=== PATIENT | female | born 1995 | race Caucasian/White ===

== ENCOUNTER 2017-12-20 17:58 | Inpatient (IN) | payer OTHER ==
[~2017-12-20] VITALS: Ht 167.6 cm; Wt 89.8 kg
[2017-12-20 18:02] VITALS: BP_SYST 153
--- NOTE | 2017-12-20 18:05 | NUR ---
Aden lira in ED - 12/20/17 at 1806 by [email or web address] Placed in room 03 . Placed on quality assurance monitor chassis, blood pressure machine and pulse oximeter. To gown for exam. Side rails up.
--- NOTE | 2017-12-20 18:05 | NUR ---
Patient to ER bed 04 to gown for evaluation. Side rails up.
[2017-12-20] MEDS ORDERED: NACL 0.9% 1,000 ML IV ONE (18:30)
[2017-12-20] MEDS ORDERED: METOCLOPRAMIDE HCL 10 MG/2 ML VIAL IVP ONE (18:30)
[2017-12-20] MEDS ORDERED: MORPHINE 4 MG/ML INJ. SYRINGE IVP ONE (18:30)
--- NOTE | 2017-12-20 18:30 | NUR ---
PT PRESENTS TO ED WITH NAUSEA, VOMITING, CP THAT "FEELS LIIKE HEARTBURN", ABD PAIN, NO FEVERS AT HOME. PT IS A&oX4. NAD
[2017-12-20 19:15] LABS: BASOPHILS # (AUTO) 0.1 K/uL (0.0-0.2); BASOPHILS % (AUTO) 0.6 % (0.0-2.0); EOSINOPHILS % (AUTO) 0.4 % (0.0-4.0); HEMATOCRIT 49.5 % (36-48); HEMOGLOBIN 16.9 g/dL (12.0-16.0); LYMPHOCYTES # (AUTO) 1.7 K/uL (1.0-5.5); LYMPHOCYTES % (AUTO) 17.7 % (20.5-51.5); MEAN CORPUSCULAR HEMOGLOBIN 29 pg (27-31); MEAN CORPUSCULAR HGB CONC 34 % (32-36); MEAN CORPUSCULAR VOLUME 86 fL (79.0-98.0); MONOCYTES # (AUTO) 1.2 K/uL (0.0-1.0); NEUTROPHILS # (AUTO) 6.5 K/uL (1.8-7.7); NEUTROPHILS % (AUTO) 68.3 % (40.0-70.0); PLATELET COUNT (AUTO) 307 K/uL (130-430); RED BLOOD CELL COUNT(AUTO) 5.76 MIL/uL (4.2-6.2); RED CELL DISTRIBUTION WIDTH 12.1 % (9.0-15.0); WHITE BLOOD COUNT (AUTO) 9.5 K/uL (4.8-10.8)
--- NOTE | 2017-12-20 19:25 | NUR ---
REPORT GIVEN TO CASS LARA. PT IN BED. U/S TECH AT BS, PERFORMING ABD U/S
[2017-12-20 19:27] LABS: ACETONE, SERUM SMALL (NEGATIVE)
[2017-12-20 19:32] LABS: ANION GAP 22 (5-15); CALCIUM 9.8 mg/dL (8.4-11.0); CHLORIDE 104 mmol/L (98-107); CREATININE 0.86 mg/dL (0.55-1.30); GLUCOSE 105 mg/dL (70-99); POTASSIUM 3.2 mmol/L (3.5-5.1); SODIUM SERUM 140 mmol/L (136-145); UREA NITROGEN, BLOOD 6 mg/dL (8-21)
[2017-12-20 19:34] LABS: ALANINE AMINOTRANSFERASE 35 U/L (12-78); ALBUMIN 4.7 g/dL (3.4-4.8); ASPARTATE AMINOTRANSFERASE 19 U/L (10-37); LIPASE 189 U/L (73-393); TOTAL BILIRUBIN 0.5 mg/dL (0.0-1.0)
--- NOTE | 2017-12-20 19:48 | NUR ---
ER Dr. Washburn at bedside examining patient.
[2017-12-20] MEDS ORDERED: ONDANSETRON HCL 4 MG/2 ML VIAL IVP ONE (20:15)
[2017-12-20] MEDS ORDERED: KCL 20 mEq in 100 mL (PREMIX) 100 ML IV ONE (20:15)
[2017-12-20] MEDS ORDERED: PANTOPRAZOLE SODIUM 40 MG/VIAL (PROTONIX) IVP ONE (20:15)
--- NOTE | 2017-12-20 20:24 | NUR ---
Patient is calmly resting in ER bed, vital signs are stable at this time.
--- NOTE | 2017-12-20 20:59 | NUR ---
Patient denies nausea at this time and states her abdominal pain is mild and tolerable. Patient denies any other complaints at this time.
[2017-12-20] MEDS ORDERED: TOP25 PO (21:24)
--- NOTE | 2017-12-20 21:51 | NUR ---
ADMISSION NOTE Received patient from ER via gurmarlena, received report from RN. Patient admitted with diagnosis of Abd pain. Patient oriented to hospital routine, call light, toileting and safety-patient verbalized understanding.
[2017-12-20 21:55] VITALS: BP_SYST 131
--- NOTE | 2017-12-20 21:57 | NUR ---
Patient will be admitted to care of Dr. Velazquez. Admitted to med surg unit. Will go to room 135. Belongings list completed. Summary report printed. Report given to Adina LARA at bedside.
[2017-12-20] MEDS: ONDANSETRON HCL 4 MG/2 ML VIAL IVP PRN (22:30)
--- NOTE | 2017-12-20 22:30 | NUR ---
ROUNDS / NAUSEA Patient continues to experience nausea. She is producing moderate amounts of clear bile, there is no retching vomiting present. Zofran IVP was administered as ordered. Patient tolerated procedure. Will continue to monitor.
[2017-12-20] MEDS: NACL 0.9% 1,000 ML IV SCH (22:34)
--- NOTE | 2017-12-20 23:06 | NUR ---
PAGED IPAGED [phone] @ 2306 I SPOKE WITH BRI SOTUT SENIOR TREASURY CONSULTANT. HE CALLED BACK @ [phone]
--- NOTE | 2017-12-20 23:30 | NUR ---
paged Patient does not have pain medication ordered. Paged Dr. Velazquez and he stated he will come see the patient.
[2017-12-21 00:30] LABS: HCG,QUAL RESULT NEGATIVE (NEGATIVE)
--- NOTE | 2017-12-21 01:20 | NUR ---
ROUNDS Patient is awake, resting in bed, in fowlers position. She reports abdominal pain which also travels and feels like a burning sensation to chest. 2mg Morphine IVP was administered as ordered. Patient was educated on side effects and fall precautions related to medication. Bed is in low position and call light w/in reach.
[2017-12-21] MEDS: MORPHINE 2 MG/ML INJ. SYRINGE IVP PRN ×3 (01:24→22:33)
[2017-12-21] MEDS: NACL 0.9% 1,000 ML IV SCH ×3 (04:21→17:23)
[2017-12-21 04:39] VITALS: BP_SYST 129
--- NOTE | 2017-12-21 04:41 | NUR ---
ROUNDS Patient is resting, lying down, w/lights out. She reports discomfort and pain are still present, though not as severe. She reports abdominal pain is 5/10. Vital signs were taken and IV fluids replaced. Plan of care was reviewed. Bed is in low position and call light within reach.
--- NOTE | 2017-12-21 06:56 | NUR ---
CLOSING NOTE Patient is resting, needs met at this time. IV fluids remain infusing. Significant other is at bedside. Call light w/in reach. Will continue to monitor until endorse care to morning nurse.
--- NOTE | 2017-12-21 07:30 | NUR ---
OPENING NOTE PT AWAKE ALERT. NO DISTRESS NOTED. ORIENTED TO CALL LIGHT USE. REFUSING BED ALARM A THIS TIME.
[2017-12-21 08:00] VITALS: BP_SYST 127
[2017-12-21] MEDS ORDERED: DIATR MEGLU/DIATRIZ SOD 30 ML SOLUTION PO ONE (08:59)
[2017-12-21] MEDS: PANTOPRAZOLE SODIUM 40 MG/VIAL (PROTONIX) IVP SCH (09:33)
[2017-12-21] MEDS: ONDANSETRON HCL 4 MG/2 ML VIAL IVP PRN (09:34)
--- NOTE | 2017-12-21 09:40 | NUR ---
MED PASS PT GIVEN ZOFRAN FOR NAUSEA. IVP PROTONIX ALSO GIVEN
--- NOTE | 2017-12-21 10:25 | NUR ---
CONSULTATION PAGED/CALLED Reason for Consultation: [] COUGH Person Who was Notified: [] YANETH Consulting Physician: [] DR Evelin GONZALEZ Deer Farmer Specialty: [] PULMONOLOGY Ordering Physician: [] DR Priti TANNER
[2017-12-21] MEDS: ALBUTEROL SULFATE 0.083% 2.5 MG/3 ML VIAL.NEB INH SCH ×4 (10:40→23:46)
[2017-12-21] MEDS: IPRATROPIUM BROM 0.5 MG/2.5 ML VIAL.NEB (ATROVENT) INH SCH ×4 (10:40→23:46)
[2017-12-21 11:14] LABS: CREATININE 0.64 mg/dL (0.55-1.30); POTASSIUM 3.8 mmol/L (3.5-5.1)
[2017-12-21 11:19] LABS: ALBUMIN 3.8 g/dL (3.4-4.8); TOTAL BILIRUBIN 0.7 mg/dL (0.0-1.0)
[2017-12-21 11:20] LABS: HEMATOCRIT 44.5 % (36-48); HEMOGLOBIN 14.4 g/dL (12.0-16.0); MEAN CORPUSCULAR HEMOGLOBIN 28 pg (27-31); MEAN CORPUSCULAR HGB CONC 32 % (32-36); MEAN CORPUSCULAR VOLUME 86 fL (79.0-98.0); PLATELET COUNT (AUTO) 282 K/uL (130-430); RED BLOOD CELL COUNT(AUTO) 5.17 MIL/uL (4.2-6.2); RED CELL DISTRIBUTION WIDTH 12.3 % (9.0-15.0); WHITE BLOOD COUNT (AUTO) 5.6 K/uL (4.8-10.8)
[2017-12-21] MEDS: methylPREDNISolone SOD SUCC/PF 62.5 MG/ML VIAL IVP SCH ×2 (11:32→18:20)
[2017-12-21 11:59] LABS: BAND % (MANUAL) 5 % (0-6); BASOPHILS % (MANUAL) 0 % (0-2); EOSINOPHILS % (MANUAL) 1 % (0-7); LYMPHOCYTES % (MANUAL) 38 % (20-46); MONOCYTES % (MANUAL) 11 % (0-11)
[2017-12-21 12:48] VITALS: BP_SYST 130
--- NOTE | 2017-12-21 12:57 | NUR ---
MED PASS PT C/O ABD PAIN 09/19 GIVEN MORPHINE 2 MG IVP ORDERED. SAFETY MAINTAINED. WILL MONITOR.
[2017-12-21] MEDS: ALBUTEROL SULFATE 0.083% 2.5 MG/3 ML VIAL.NEB INH PRN (13:12)
[2017-12-21] MEDS: IPRATROPIUM BROM 0.5 MG/2.5 ML VIAL.NEB (ATROVENT) INH PRN (13:12)
--- NOTE | 2017-12-21 14:00 | NUR ---
PATIENT RESTING: Patient resting quietly. No acute distress noted. Vital signs within normal range.
--- NOTE | 2017-12-21 15:30 | NUR ---
RT NOTES Tx not indicated at this time. No SOB noted. Last HHN tx given @1310.
--- NOTE | 2017-12-21 16:00 | NUR ---
ROUNDS PT LAYING IN BED WITH GIRLFRIEND AT BEDSIDE. NO DISTRESS NOTED.
[2017-12-21 16:34] VITALS: BP_SYST 132
[2017-12-21] MEDS: AZITHROMYCIN 500 MG in NS 250 ML IV SCH (17:24)
--- NOTE | 2017-12-21 18:23 | NUR ---
med pass ivp solumedrol given. no distress noted.
--- NOTE | 2017-12-21 19:25 | NUR ---
CLOSING NOTE ALL NEEDS MET THROUGH SHIFT. CARE ENDORSED TO MAKE UP WORKER. SAFETY MAINTAINED.
--- NOTE | 2017-12-21 19:34 | NUR ---
OPENING NOTE Received report from Magda. Patient resting in bed awake, alert, oriented x4. Breathing unlabored and even on room air. No signs of distress, no needs at this time. Fall and safety precautions in place. Bed in lowest position, brake on, call light within reach. Bed alarm refused. IVF infusing a ordered. Will continue to monitor.
[2017-12-21 20:15] VITALS: BP_SYST 148
--- NOTE | 2017-12-21 22:35 | NUR ---
Pt c/o pain. Administered PRN morphine IVP as ordered. Educated patient on safety and side effects. Encouraged call for assist.
[2017-12-22] VITALS: BP_SYST 121
--- NOTE | 2017-12-22 00:14 | NUR ---
Patient resting in bed awake, alert, oriented x4. Breathing unlabored and even on room air. No signs of distress, no needs at this time. Fall and safety precautions in place. Bed in lowest position, brake on, call light within reach. Girlfriend at the bedside. IVF infusing a ordered. Will continue to monitor.
--- NOTE | 2017-12-22 02:15 | NUR ---
Patient reports one episode of diarrhea
[2017-12-22] MEDS: methylPREDNISolone SOD SUCC/PF 62.5 MG/ML VIAL IVP SCH ×3 (02:57→18:27)
[2017-12-22] MEDS: NACL 0.9% 1,000 ML IV SCH ×4 (02:58→20:41)
[2017-12-22] MEDS: IPRATROPIUM BROM 0.5 MG/2.5 ML VIAL.NEB (ATROVENT) INH SCH ×6 (03:00→23:00)
[2017-12-22] MEDS: ALBUTEROL SULFATE 0.083% 2.5 MG/3 ML VIAL.NEB INH SCH ×6 (03:00→23:00)
--- NOTE | 2017-12-22 03:02 | NUR ---
Med pass. New IVF hung
[2017-12-22 06:14] LABS: MONOCYTES # (AUTO) 0.5 K/uL (0.0-1.0)
[2017-12-22 06:28] LABS: CALCIUM 9.6 mg/dL (8.4-11.0); CREATININE 0.55 mg/dL (0.55-1.30); TOTAL BILIRUBIN 0.5 mg/dL (0.0-1.0)
[2017-12-22 07:14] LABS: BASOPHILS % (AUTO) 0.7 % (0.0-2.0); HEMOGLOBIN 15.2 g/dL (12.0-16.0); LYMPHOCYTES % (AUTO) 19.2 % (20.5-51.5); MEAN CORPUSCULAR HEMOGLOBIN 28 pg (27-31); MEAN CORPUSCULAR HGB CONC 33 % (32-36); MEAN CORPUSCULAR VOLUME 86 fL (79.0-98.0); NEUTROPHILS # (AUTO) 3.8 K/uL (1.8-7.7); NEUTROPHILS % (AUTO) 71.1 % (40.0-70.0); RED BLOOD CELL COUNT(AUTO) 5.34 MIL/uL (4.2-6.2); RED CELL DISTRIBUTION WIDTH 12.5 % (9.0-15.0); WHITE BLOOD COUNT (AUTO) 5.3 K/uL (4.8-10.8)
[2017-12-22 07:24] LABS: PLATELET COUNT (AUTO) 302 K/uL (130-430)
--- NOTE | 2017-12-22 07:36 | NUR ---
CLOSING NOTE Gave report Marielos. Patient resting in bed awake, alert, oriented x4. Breathing unlabored and even on room air. No signs of distress, no needs at this time. Fall and safety precautions in place. Bed in lowest position, brake on, call light within reach. Girlfriend at the bedside. IVF infusing a ordered. Endorsed care to day shift nurse.
[2017-12-22 08:00] VITALS: BP_SYST 139
--- NOTE | 2017-12-22 08:00 | NUR ---
Opening Note/Refuse bed alarm received report from assistant casino shift manager RN, pt resting in bed, A&Ox4, respirations even and unlabored on room air, pt reports pain is controlled at this time, no acute distress noted, IV site clean, dry, intact, and infusing well, pt educated on use of call light and asked to call for assistance, pt verbalized understanding, call light in reach, pt educated on use of bed alarm for pt safety, pt refusing bed alarm at this time, bed in low position, fall and aspiration precautions in place.
[2017-12-22] MEDS: PANTOPRAZOLE SODIUM 40 MG/VIAL (PROTONIX) IVP SCH (08:29)
--- NOTE | 2017-12-22 08:35 | NUR ---
Medication pt educated on medication use and side effects, pt verbalized understanding, tolerated medication administration well, no acute distress noted, fall and aspiration precautions in place.
--- NOTE | 2017-12-22 10:00 | NUR ---
MD Rounds Rounds with Dr. Schultz, informed MD that pt has had multiple episodes of liquid diarrhea this AM, orders for imodium, per MD stool sample is not needed, orders for fingersticks ACHS, orders verified with read back.
[2017-12-22] MEDS ORDERED: LOPERAMIDE HCL 2 MG CAPSULE PO PRN (10:15)
[2017-12-22] MEDS ORDERED: TOPIRAMATE 25 MG TABLET(TOPAMAX) PO ONE (10:45)
--- NOTE | 2017-12-22 10:46 | NUR ---
Medication pt educated on use and side effects of medication, pt verbalized understanding, pt tolerated medication administration well, no acute distress noted, fall and aspiration precautions in place.
--- NOTE | 2017-12-22 11:03 | NUR ---
Ambulating in lr pt seen ambulating in lr, steady gait noted, pt tolerating well.
--- NOTE | 2017-12-22 11:28 | NUR ---
Medication pt educated on medication use and side effects, pt verbalized understanding, tolerated medication administration well, no acute distress noted, fall and aspiration precautions in place.
--- NOTE | 2017-12-22 12:00 | NUR ---
MD Rounds Rounds with Dr. Marion MD made aware of pt potassium 3.0, and that pt has DM, orders for fingersticks ACHS and PO potassium replacement, orders verified with read back.
[2017-12-22] MEDS ORDERED: POTASSIUM CHLORIDE 20 MEQ TAB.PRT.SR PO ONE (12:15)
[2017-12-22 12:19] VITALS: BP_SYST 130
--- NOTE | 2017-12-22 12:32 | NUR ---
Medication pt educated on medication use and side effects, pt verbalized understanding, tolerated medication administration well, no acute distress noted, fall and aspiration precautions in place.
--- NOTE | 2017-12-22 13:38 | NUR ---
Rounds Dr. Almeida at bedside examining pt. Addendum: 12/22/17 at 1339 by Marielos Kraus RN add: per pt she vomited after taking the PO potassium replacement, MD to order IV potassium.
[2017-12-22] MEDS ORDERED: POTASSIUM CHLORIDE 40 MEQ, LIDOCAINE JECT 2% PF 100 MG 50 MG in NS 250 ML IV ONE (13:45)
--- NOTE | 2017-12-22 14:27 | NUR ---
Called Pharmacy called pharmacy regarding potassium replacement, per pharmacy they will bring to floor as soon as available.
[2017-12-22] MEDS: AZITHROMYCIN 500 MG in NS 250 ML IV SCH (14:33)
--- NOTE | 2017-12-22 14:42 | NUR ---
Medication pt educated on medication use and side effects, pt verbalized understanding, tolerating medication administration well, no redness or swelling noted at IV site, no acute distress noted, fall and aspiration precautions in place.
--- NOTE | 2017-12-22 15:45 | NUR ---
Pt ambulating/SOB pt ambulating in lr, pt complaint of SOB, pt taken back to bed via wheelchair, respiratory therapy at bedside giving breathing treatment, pt tolerating well, BP 137/63, HR 101, O2Sat 100%, respirations 19, pt states that SOB is relieved with breathing treatment and rest, no acute distress noted, fall and aspiration precautions in place.
[2017-12-22] MEDS: MORPHINE 2 MG/ML INJ. SYRINGE IVP PRN (16:16)
--- NOTE | 2017-12-22 16:23 | NUR ---
Pain Management/Medication pt complaint of pain 09/19 to abdomen, pt educated on use and side effects of PRN pain medication, pt verbalized understanding, tolerated medication administration well, no acute distress noted, fall and aspiration precautions in place.
[2017-12-22 16:55] VITALS: BP_SYST 148
--- NOTE | 2017-12-22 17:30 | NUR ---
Blood Glucose blood glucose 146, no insulin indicated per sliding scale orders, pt resting in bed, family at bedside, fall and aspiration precautions in place.
--- NOTE | 2017-12-22 18:32 | NUR ---
Medication pt educated on medication use and side effects, pt verbalized understanding, tolerated medication administration well, no acute distress noted, fall and aspiration precautions in place.
[2017-12-22 19:10] VITALS: BP_SYST 118
--- NOTE | 2017-12-22 19:10 | NUR ---
Closing Note/Refuse bed alarm pt resting in bed, A&Ox4, respirations even and unlabored on room air, pt reports pain is controlled at this time, no acute distress noted, pt requesting breathing treatment, respiratory therapy called, IV site clean, dry, intact, and infusing well, family at bedside, pt educated on use of call light and asked to call for assistance, pt verbalized understanding, call light in reach, pt educated on use of bed alarm for pt safety, pt refusing bed alarm, bed in low position, fall and aspiration precautions in place, care endorsed to Wanda LARA.
--- NOTE | 2017-12-22 19:13 | NUR ---
Opening Note Received bedside sbar report from william RNMraielos. Patient is awake/alert/oriented, with her mother and father bedside. No acute distress noted at this time: 118/60 79 16 98.0 98% (room air) IV site noted to LAC 22G, infusing NS @ 150 ml/hr. Patency verified with good blood return/flush. No signs of infiltration at this time. Introduced myself, discussed plan of care, updated whiteboard. Bed to lowest position, 3 side rails raised, call light within reach, bed alarm not activated per request. Will continue to monitor patient.
--- NOTE | 2017-12-22 19:39 | NUR ---
health type technician currently in with patient administering breathing treatment.
--- NOTE | 2017-12-22 20:01 | NUR ---
Patient's mother/father requested to speak with me. Came to room and they have questions/concerns about what is going on with their daughter (who is present with us). They are concerned with how non-attentive and nonchalant Dr. Schultz is with her as a patient. They continue to show concern about how she can only walk a few steps before becoming short of breath. The mother mentions that a week or so ago patient was bitten several times for mosquitos and they are questioning if this could be '[place] virus or malaria.' They would like more labs done. Informed them upon rounding tomorrow to ensure they express these concerns/request to and that I'd endorse concerns to william LARA. They provided their # in the even they are not present [phone]
--- NOTE | 2017-12-22 20:47 | NUR ---
Blood Glucose : 184 (2U regular insulin administered per physician ordered sliding scale.) Patient educated and verbalized understanding for s/s hypoglycemia.
[2017-12-22] MEDS: INSULIN REGULAR, HUMAN 100 UNITS/ML, 10 ML VIAL (novoLIN R) SUBCUT PRN (20:50)
--- NOTE | 2017-12-22 21:05 | NUR ---
Patient would like warm blanket; provided.
--- NOTE | 2017-12-22 23:06 | NUR ---
Rounds Patient is awake/alert/oriented with her fiance bedside. Respirations equal/non-labored @ 17/min IV site clean/dry/intact with no signs of infiltration at this time. Bed to lowest position, 3 side rails raised, call light within reach, bed alarm not activated per request. Will continue to monitor patient.
--- NOTE | 2017-12-23 00:45 | NUR ---
IV site infiltrated. New IV site started to RFA 22G, patency verified with good blood return/flush. Old site DC'd and verified catheter retrieved was fully intact.
[2017-12-23 01:20] VITALS: BP_SYST 107
[2017-12-23] MEDS: MORPHINE 2 MG/ML INJ. SYRINGE IVP PRN (02:06)
--- NOTE | 2017-12-23 02:12 | NUR ---
Rounds Patient is resting, eyes closed with no acute distress noted. No shortness of breath, no labored breathing. IV site clean/dry/intact with no signs of infiltration at this time. Bed to lowest position, 3 side rails raised, call light within reach, bed alarm not activated per request. Will continue to monitor patient.
[2017-12-23] MEDS: IPRATROPIUM BROM 0.5 MG/2.5 ML VIAL.NEB (ATROVENT) INH SCH ×4 (03:00→19:15)
[2017-12-23] MEDS: ALBUTEROL SULFATE 0.083% 2.5 MG/3 ML VIAL.NEB INH SCH ×2 (03:00→06:18)
[2017-12-23] MEDS: methylPREDNISolone SOD SUCC/PF 62.5 MG/ML VIAL IVP SCH ×2 (03:16→20:25)
[2017-12-23] MEDS: NACL 0.9% 1,000 ML IV SCH (03:22)
--- NOTE | 2017-12-23 04:06 | NUR ---
Rounds Patient is resting, eyes closed but easily arouses to light stimulation. Her fiance is sleeping bedside. Equal rise and fall of non-labored respirations; 17/min IV site clean/dry/intact with no signs of infiltration at this time. Bed to lowest position, 3 side rails raised, call light within reach, bed alarm not activated per request. Will continue to monitor patient.
--- NOTE | 2017-12-23 06:10 | NUR ---
Patient called and asked to see me. Came to see patient she complains of nausea, light headedness and is trembling. I asked her what happened and she says that lab was just there to draw blood, she got up to use the restroom and felt like she was going to faint. (Patient is afraid of needles.) Checked blood glucose: 130 Vitals: 120/76 71 19 100% 97.9 with no complaints of pain. Administered Zofran 4mg for nausea. Patient is a bit short of breath, called respiratory and they will come administer breathing treatment per request. Will continue to monitor patient.
[2017-12-23] MEDS: ONDANSETRON HCL 4 MG/2 ML VIAL IVP PRN (06:13)
--- NOTE | 2017-12-23 06:13 | NUR ---
Blood Glucose : 130 (no correction needed per physician ordered sliding scale.) Patient educated and verbalized understanding for s/s hypoglycemia.
--- NOTE | 2017-12-23 06:18 | NUR ---
cat scan technologist currently in with patient administering breathing treatment.
[2017-12-23 07:06] LABS: BASOPHILS # (AUTO) 0.1 K/uL (0.0-0.2); BASOPHILS % (AUTO) 0.9 % (0.0-2.0); EOSINOPHILS % (AUTO) 0.1 % (0.0-4.0); HEMATOCRIT 38.7 % (36-48); HEMOGLOBIN 12.7 g/dL (12.0-16.0); MEAN CORPUSCULAR HEMOGLOBIN 28 pg (27-31); MEAN CORPUSCULAR HGB CONC 33 % (32-36); MEAN CORPUSCULAR VOLUME 85 fL (79.0-98.0); MONOCYTES # (AUTO) 0.6 K/uL (0.0-1.0); NEUTROPHILS # (AUTO) 4.8 K/uL (1.8-7.7); PLATELET COUNT (AUTO) 282 K/uL (130-430); RED BLOOD CELL COUNT(AUTO) 4.53 MIL/uL (4.2-6.2); RED CELL DISTRIBUTION WIDTH 12.6 % (9.0-15.0); WHITE BLOOD COUNT (AUTO) 6.4 K/uL (4.8-10.8)
[2017-12-23 07:14] LABS: ALBUMIN 3.4 g/dL (3.4-4.8); CREATININE 0.57 mg/dL (0.55-1.30); POTASSIUM 3.5 mmol/L (3.5-5.1); TOTAL BILIRUBIN 0.7 mg/dL (0.0-1.0)
--- NOTE | 2017-12-23 07:15 | NUR ---
Closing Note Bedside SBAR report given to dayshift RNAntonino Patient is awake/alert/oriented and says she is 'feeling much better now' All needs/interventions/expectations met by nightshift RN. Transfer of care successful.
[2017-12-23 08:24] VITALS: BP_SYST 127
--- NOTE | 2017-12-23 08:30 | NUR ---
opening notes, pt in bed, pt is aaox4, denies pain. noted pt having sob when talking, noted wheezing throughout. will inform md. pt is on breathing treatment. pt is afebrile. iv fluids infusing well. iv site has no s/s of infiltration. safety precaution kept in place. call light in reach. bed in low position. encouraged to call for assist and pain meds and any concerns. will cont to monitor.
[2017-12-23] MEDS: PANTOPRAZOLE SODIUM 40 MG/VIAL (PROTONIX) IVP SCH (08:52)
[2017-12-23] MEDS: TOPIRAMATE 25 MG TABLET(TOPAMAX) PO SCH (08:52)
[2017-12-23] MEDS: METOCLOPRAMIDE HCL 10 MG TABLET PO PRN (09:22)
[2017-12-23] MEDS ORDERED: methylPREDNISolone SOD SUCC/PF 62.5 MG/ML VIAL IVP ONE (09:45)
[2017-12-23] MEDS ORDERED: POTASSIUM CHLORIDE 40 MEQ, LIDOCAINE JECT 2% PF 100 MG 50 MG in NS 250 ML IV ONE (09:45)
[2017-12-23] MEDS: ALBUTEROL SULFATE 0.083% 2.5 MG/3 ML VIAL.NEB INH PRN (09:47)
[2017-12-23] MEDS: IPRATROPIUM BROM 0.5 MG/2.5 ML VIAL.NEB (ATROVENT) INH PRN ×2 (09:48→22:13)
[2017-12-23] MEDS ORDERED: AZITHROMYCIN 500 MG in NS 250 ML IV SCH (10:00)
[2017-12-23] MEDS: POTASSIUM CHLORIDE 10 MEQ in 0.45% NACL 1,000 ML IV SCH ×2 (11:10→22:52)
[2017-12-23] MEDS ORDERED: ALPRAZolam 0.25 MG TABLET ONE (11:15)
--- NOTE | 2017-12-23 11:20 | NUR ---
PT TAKEN TO CT FOR CTA OF CHEST. PT SIGNED CONSENT FOR IV CONTRAST.
[2017-12-23] MEDS ORDERED: IOHEXOL 350 mgI/mL, 150 ML INFUS..BTL IV ONE (11:34)
[2017-12-23 12:08] VITALS: BP_SYST 132
[2017-12-23] MEDS: LevALBUTEROL HCL 1.25 MG/0.5 ML *CONC.* VIAL.NEB (XOPENEX CONC.) INH SCH ×2 (13:16→19:15)
[2017-12-23] MEDS ORDERED: methylPREDNISolone SOD SUCC/PF 62.5 MG/ML VIAL IVP SCH (14:00)
--- NOTE | 2017-12-23 14:00 | NUR ---
PT IN BED, NO C/O PAIN. NO SOB, NO DISTRESS. CALL LIGHT IN REACH. BED IN LOW POSITION. WILL CONT TO MONITOR.
[2017-12-23 16:45] VITALS: BP_SYST 117; BP_SYST 130
[2017-12-23] MEDS: SUCRALFATE 1 GM TABLET PO SCH (16:56)
[2017-12-23] MEDS: AZITHROMYCIN 500 MG in NS 250 ML IV SCH (16:57)
--- NOTE | 2017-12-23 18:01 | NUR ---
PT IN BED, FAMILY AT BEDSIDE. INFORMED PT THAT I GOT ORDER FOR BIOTIN SHE REQUESTED. NO C/O PAIN, NO DISTRESS.
--- NOTE | 2017-12-23 18:27 | NUR ---
WITH PT'S APPROVAL PT AND FAMILY GIVEN UPDATE OF PT'S CARE OF PLAN AND STATUS REQUESTED.
--- NOTE | 2017-12-23 18:56 | NUR ---
CLOSING NOTES PT C/O N/V THIS AM , GIVE ZOFRAN AND REGLAN, PT RECEIVES BREATHING TREATMENT. BLOOD SUGAR CHECKED. IT WAS 117 SAFETY PRECAUTION KEPT IN PLACE. CALL LIGHT IN REACH. BED IN LOW POSITION. IV SITE INTACT AND PATENT. IV FLUIDS INFUSING WELL . GIVEN K-RIDER AND ABX. WILL ENDORSE TO NIGHT RN.
[2017-12-23 20:00] VITALS: BP_SYST 140
--- NOTE | 2017-12-23 20:00 | NUR ---
Initial Notes Received patient resting in bed, awake, alert, oriented, family at bedside. Patient denies any acute distress or pain at this time. Vital signs stable. Breathing is even and unlabored. IV site patent/clean/dry. Needs addressed. Educated patient regarding use of call light for assistance and fall precautions, patient verbalized understanding. Call light in hand, fall precautions in place. Will continue to monitor
[2017-12-23] MEDS: guaiFENesin ER 600 MG TAB PO SCH (20:24)
[2017-12-23] MEDS: INSULIN REGULAR, HUMAN 100 UNITS/ML, 10 ML VIAL (novoLIN R) SUBCUT PRN (20:32)
[2017-12-23] MEDS: ALPRAZolam 0.25 MG TABLET PO PRN (21:47)
--- NOTE | 2017-12-23 22:00 | NUR ---
Nursing Notes Patient resting in bed, awake, family at bedside. Patient denies any acute distress at this time. Breathing is even and unlabored. IV site patent/clean/dry. Needs addressed. Patient updated on plan of care. Call light in hand, fall precautions in place.
[2017-12-23] MEDS: LevALBUTEROL HCL 1.25 MG/0.5 ML *CONC.* VIAL.NEB (XOPENEX CONC.) INH PRN (22:13)
[2017-12-23 23:20] VITALS: BP_SYST 140
--- NOTE | 2017-12-24 | NUR ---
Nursing Notes Patient resting in bed with eyes closed, easily aroused upon nurse entering room, family at bedside. Patient denies any acute distress or pain at this time. IV site patent/clean/dry. Needs addressed. Will continue to monitor.
[2017-12-24] MEDS: IPRATROPIUM BROM 0.5 MG/2.5 ML VIAL.NEB (ATROVENT) INH SCH ×4 (01:27→18:50)
[2017-12-24] MEDS: LevALBUTEROL HCL 1.25 MG/0.5 ML *CONC.* VIAL.NEB (XOPENEX CONC.) INH SCH ×2 (01:27→07:31)
[2017-12-24] MEDS: MORPHINE 2 MG/ML INJ. SYRINGE IVP PRN ×2 (02:29→18:44)
--- NOTE | 2017-12-24 02:30 | NUR ---
Nursing Notes Patient resting in bed, awake, family at bedside. Patient denies any acute distress at this time. Medicated patient for pain per MD orders. IV site patent/clean/dry. Needs addressed. Call light in hand, fall precautions in place.
--- NOTE | 2017-12-24 04:39 | NUR ---
Nursing Notes Patient resting in bed with eyes closed, easily aroused, family at bedside. Patient denies any acute distress or pain at this time. Breathing is even and unlabored. IV site patent/clean/dry. Denies any needs at this time. Will continue to monitor.
[2017-12-24] MEDS: SUCRALFATE 1 GM TABLET PO SCH ×2 (06:06→17:16)
[2017-12-24 06:39] LABS: ALBUMIN 3.4 g/dL (3.4-4.8); CALCIUM 9.2 mg/dL (8.4-11.0); CREATININE 0.69 mg/dL (0.55-1.30); POTASSIUM 3.5 mmol/L (3.5-5.1); TOTAL BILIRUBIN 0.5 mg/dL (0.0-1.0)
--- NOTE | 2017-12-24 06:40 | NUR ---
Closing Notes Patient resting in bed, awake, anxious, family at bedside. Patient refusing offered PRN anxiety medication at this time. Patient denies any acute distress or pain at this time. Breathing is even and unlabored. IV site patent/clean/dry, no S/S infection/infiltration noted. Needs addressed throughout shift. Call light in hand, fall precautions in place. Will continue to monitor for changes and safety, and endorse all patient care/needs to oncoming nurse.
[2017-12-24 07:32] LABS: HEMOGLOBIN 12.8 g/dL (12.0-16.0); MEAN CORPUSCULAR HEMOGLOBIN 27 pg (27-31); MEAN CORPUSCULAR HGB CONC 32 % (32-36); MEAN CORPUSCULAR VOLUME 86 fL (79.0-98.0); PLATELET COUNT (AUTO) 275 K/uL (130-430); RED BLOOD CELL COUNT(AUTO) 4.67 MIL/uL (4.2-6.2); RED CELL DISTRIBUTION WIDTH 12.7 % (9.0-15.0); WHITE BLOOD COUNT (AUTO) 6.7 K/uL (4.8-10.8)
--- NOTE | 2017-12-24 07:50 | NUR ---
OPENING NOTES, PT IS AAOX4, DENIES PAIN, NO SOB, NO DISTRESS. NO N/V. IV FLUIDS INFUSING WELL. IV ACCESS INTACT AND PATENT. IV SITE NO S/S OF INFILTRATION OF SWELLING. CALL LIGHT IN REACH. BED IN LOW POSITION. PT IS BRP. SIG OTHER IS AT BEDSIDE. ENCOUIRAGED TO CALL FOR PAIN MED AND FOR ANY CONCERNS. WILL CONT TO MONITOR.
[2017-12-24 08:24] VITALS: BP_SYST 138
[2017-12-24 08:32] LABS: BAND % (MANUAL) 0 % (0-6); BASOPHILS % (MANUAL) 0 % (0-2); EOSINOPHILS % (MANUAL) 0 % (0-7); LYMPHOCYTES % (MANUAL) 22 % (20-46); MONOCYTES % (MANUAL) 8 % (0-11)
[2017-12-24] MEDS ORDERED: PREDNISONE 20 MG TABLET PO SCH (09:00)
[2017-12-24] MEDS: BIOTIN 1000 MCG PO SCH (09:11)
--- NOTE | 2017-12-24 09:14 | NUR ---
Nutrition Update Ayaan Scale 18 noted. Pt admitted for abd pain. Diet: CCHO, standard carb-60 gm, mechanical soft BMI: 32.1 kg/m2 RD to follow per nutrition care standards.
[2017-12-24] MEDS: PANTOPRAZOLE SODIUM 40 MG TAB PO SCH (09:20)
[2017-12-24] MEDS: TOPIRAMATE 25 MG TABLET(TOPAMAX) PO SCH (09:20)
[2017-12-24] MEDS: guaiFENesin ER 600 MG TAB PO SCH ×2 (09:21→20:13)
[2017-12-24] MEDS: methylPREDNISolone SOD SUCC/PF 62.5 MG/ML VIAL IVP SCH (09:21)
[2017-12-24] MEDS ORDERED: POTASSIUM CHLORIDE 40 MEQ, LIDOCAINE JECT 2% PF 100 MG 50 MG in NS 250 ML IV ONE (10:30)
[2017-12-24] MEDS: POTASSIUM CHLORIDE 10 MEQ in 0.45% NACL 1,000 ML IV SCH ×3 (10:31→23:00)
[2017-12-24 11:33] VITALS: BP_SYST 151
[2017-12-24] MEDS: ALBUTEROL SULFATE 0.083% 2.5 MG/3 ML VIAL.NEB INH SCH ×2 (14:02→18:50)
[2017-12-24] MEDS: AZITHROMYCIN 500 MG in NS 250 ML IV SCH (14:41)
[2017-12-24 16:00] VITALS: BP_SYST 128
[2017-12-24 16:11] VITALS: BP_SYST 151
[2017-12-24] MEDS: INSULIN REGULAR, HUMAN 100 UNITS/ML, 10 ML VIAL (novoLIN R) SUBCUT PRN (17:27)
--- NOTE | 2017-12-24 18:32 | NUR ---
CLOSING NOTES, PT HAS BEEN STABLE THE WHOLE SHIFT , NO C/O PAIN, NO SOB NOTED, IV FLUIDS INFUSING WELL. K-RIDER GIVEN. PT AND FAMILY AWARE OF THE PLAN OF CARE. PT SEEN BY PMD AND CONSULT. WILL ENDORSE TO NIGHT RN.
--- NOTE | 2017-12-24 18:55 | NUR ---
PT GIVEN PAIN MED FOR PAIN LEVEL OF 7/10. PT WAS CRYING. FAMILY IS AT BEDSIDE.
--- NOTE | 2017-12-24 19:40 | NUR ---
OPENING NOTE RECEIVED PT AND REPORT FROM DAY SHIFT. PT SITTING UP IN BED. PT ABLE TO VERBALIZE NEEDS. FAMILY AT BEDSIDE. PT APPEARS ANXIOUS. IV IS INTACT AND RUNNING IVF PER ORDERS. PT ON ROOM AIR. FALL AND SAFETY PRECAUTIONS IN PLACE. BED LOCKED IN LOWEST POSITION. CALL LIGHT WITH PT. WILL CONTINUE TO MONITOR.
[2017-12-24] MEDS: ALPRAZolam 0.25 MG TABLET PO PRN (19:43)
--- NOTE | 2017-12-24 19:43 | NUR ---
XANAX PRN ADMINISTERED PRN XANAX PER ORDERS. PT TO BE MOVED TO ANOTHER ROOM PER REQUEST.
[2017-12-24 20:00] VITALS: BP_SYST 148
--- NOTE | 2017-12-24 20:13 | NUR ---
MEDICATION ADMINISTRATION ADMINISTERED MEDICATION PER ORDERS. BLOOD SUGAR READING OF 125, NO COVERAGE PER SLIDING SCALE. WILL CONTINUE TO MONITOR. CALL LIGHT WITH PT.
[2017-12-24] MEDS ORDERED: methylPREDNISolone SOD SUCC/PF 62.5 MG/ML VIAL IVP SCH (21:00)
[2017-12-24] MEDS: LevALBUTEROL HCL 1.25 MG/0.5 ML *CONC.* VIAL.NEB (XOPENEX CONC.) INH PRN (22:29)
[2017-12-24] MEDS: IPRATROPIUM BROM 0.5 MG/2.5 ML VIAL.NEB (ATROVENT) INH PRN (22:29)
--- NOTE | 2017-12-24 23:00 | NUR ---
IVF ADMINISTERED IVF PER ORDERS. PT RESTING IN BED. FAMILY AT BEDSIDE. WILL CONTINUE TO MONITOR.
--- NOTE | 2017-12-25 00:28 | NUR ---
ROUNDING NOTE PT RESTING IN BED. NO NEEDS AT THIS TIME. WILL CONTINUE TO MONITOR. CALL LIGHT WITH PT.
[2017-12-25] MEDS: ALBUTEROL SULFATE 0.083% 2.5 MG/3 ML VIAL.NEB INH SCH ×6 (01:00→22:40)
[2017-12-25] MEDS: IPRATROPIUM BROM 0.5 MG/2.5 ML VIAL.NEB (ATROVENT) INH SCH ×6 (01:00→22:40)
[2017-12-25 01:30] VITALS: BP_SYST 125
--- NOTE | 2017-12-25 02:35 | NUR ---
ROUNDING NOTE PT SLEEPING IN BED. NO S/S OF DISTRESS OR DISCOMFORT. FAMILY AT BEDSIDE. WILL CONTINUE TO MONITOR.
--- NOTE | 2017-12-25 02:40 | NUR ---
EMPTIED BEARD CATHETER 700 ML OF ORANGE URINE EMPTIED FROM BEARD CATHETER. Addendum: 12/25/17 at 0311 by Landy Franco RN INCORRECT PT.
--- NOTE | 2017-12-25 03:27 | NUR ---
ROUNDING NOTE ADJUSTED IV MACHINE. PT RESTING. DENIES ANY NEEDS. WILL CONTINUE TO MONITOR.
--- NOTE | 2017-12-25 05:02 | NUR ---
ROUNDING NOTE PT SLEEPING. NO NEEDS AT THIS TIME. CALL LIGHT WITH PT. WILL CONTINUE TO MONITOR.
[2017-12-25] MEDS: SUCRALFATE 1 GM TABLET PO SCH ×2 (06:09→18:15)
--- NOTE | 2017-12-25 06:09 | NUR ---
MEDICATION ADMINISTRATION/ BS ADMINISTERED MEDICATION PER ORDERS. BLOOD SUGAR READING OF 133. NO COVERAGE PER SLIDING SCALE. NO OTHER NEEDS. CUPOLA PATCHER HELPER AT BEDSIDE. CALL LIGHT WITH PT. WILL CONTINUE TO MONITOR.
--- NOTE | 2017-12-25 06:53 | NUR ---
CLOSING NOTE WILL ENDORSE CARE AND REPORT TO DAY SHIFT NURSE. PT RESTING IN BED. FAMILY AT BEDSIDE. NO S/S OF DISTRESS OR DISCOMFORT. PT IN STABLE CONDITION. ALL NEEDS MET THROUGHOUT SHIFT. NO SIGNIFICANT CHANGES TO NOTE. CALL LIGHT WITH PT. WILL CONTINUE TO MONITOR.
[2017-12-25] MEDS: ALPRAZolam 0.25 MG TABLET PO PRN ×2 (07:36→18:20)
--- NOTE | 2017-12-25 07:36 | NUR ---
XANAX PRN PT APPEARS TO BE HAVING PANIC ATTACK DUE TO FAMILY MEMBER LEAVING. PT JUST RECEIVED BREATHING TREATMENT. PT IS FLUSTERED AND HAVING DIFFICULTY CATCHING BREATH. PT CRYING AND ATTEMPTING TO CALM SELF. ADMINISTERED XANAX PRN TO CALM PT. DAY SHIFT NURSE WILL CONTINUE TO MONITOR PT.
[2017-12-25 07:38] VITALS: BP_SYST 141
--- NOTE | 2017-12-25 08:00 | NUR ---
am notes received pt in bed. feeling better .not in acute distress. vitals stable .. safety precautions maintained. ivf infusing well. no s/s of infiltration noted .will continue to monitor
[2017-12-25] MEDS: PANTOPRAZOLE SODIUM 40 MG TAB PO SCH (09:10)
[2017-12-25] MEDS: TOPIRAMATE 25 MG TABLET(TOPAMAX) PO SCH (09:10)
[2017-12-25] MEDS: guaiFENesin ER 600 MG TAB PO SCH ×2 (09:10→21:18)
[2017-12-25] MEDS: methylPREDNISolone SOD SUCC 40 MG/ML VIAL IVP SCH ×2 (09:11→21:18)
--- NOTE | 2017-12-25 09:17 | NUR ---
MEDS DUE MEDS GIVEN ORDERED. PT RESTING COMFORTABLY. MOTHER AT BED SIDE
[2017-12-25] MEDS ORDERED: MILK OF MAGNESIA 30 ML UDC PO ONE (10:45)
[2017-12-25 11:23] VITALS: BP_SYST 130
[2017-12-25] MEDS: BUDESONIDE 0.5 MG/2 ML AMPUL.NEB INH SCH ×2 (11:30→19:55)
[2017-12-25] MEDS ORDERED: BUDESONIDE 0.5 MG/2 ML AMPUL.NEB ONE (11:35)
--- NOTE | 2017-12-25 12:08 | NUR ---
rounds pt stable sitting in bed comfortably. not in acute distress. seen by dr cuadra new order received . will continue to monitor
[2017-12-25 15:26] VITALS: BP_SYST 143
[2017-12-25] MEDS: POTASSIUM CHLORIDE 10 MEQ in 0.45% NACL 1,000 ML IV SCH (15:33)
[2017-12-25] MEDS: AZITHROMYCIN 500 MG in NS 250 ML IV SCH (15:33)
--- NOTE | 2017-12-25 16:00 | NUR ---
ROUNDS PT STABLE NOT IN ACUTE DISTRESS. IVF INFUSING WELL. NO S/S OF INFILTRATION NOTED. MOTHER AT BED SIDE. WILL CONTINUE TOMONITOR
--- NOTE | 2017-12-25 18:24 | NUR ---
NOTES PT IS FEELING VERY ANXIOUS, CRYING. DENIES ANY PAIN AT THIS TIME. MEDIATED WITH XANEX 0.25 MG PO ORDERED. REASSURANCE PROVIDED. FAMILY AT BED SIDE. WILL CONTINUE TO MONITOR
--- NOTE | 2017-12-25 19:10 | NUR ---
OPENING NOTES RECEIVED PATIENT IN BED AAO X4. DENIES PAIN AT THIS TIME. BREATHING UNLABORED. IVF INFUSING ORDERED. PLAN OF CARE REVIEWED WITH PATIENT. CALL LIGHT WITHIN EASY REACH. SIDERAILS UP X2. BED IN LOWEST LOCKED POSITION.
--- NOTE | 2017-12-25 19:30 | NUR ---
CLOSING NOTES PT STABLE FEELING BETTER. NOT IN ACUTE DISTRESS. FAMILY AT BED SIDE.IVF INFUSING REPORT GIVEN TO NIGHT NURSE
[2017-12-25 21:12] VITALS: BP_SYST 141
[2017-12-25] MEDS: BIOTIN 1000 MCG PO SCH (21:19)
--- NOTE | 2017-12-25 21:19 | NUR ---
MED PASS PATIENT DUE MEDICATIONS GIVEN AND TOLERATED. BLOOD SUGAR 124. NO COVERAGE NEEDED PER SLIDING SCALE. FAMILY AT BEDSIDE.
--- NOTE | 2017-12-26 00:30 | NUR ---
ROUNDS PATIENT RESTING IN BED. BREATHING UNLABORED ON ROOM AIR. VITAL SIGNS STABLE. CALL LIGHT WITHIN REACH.
[2017-12-26 01:07] VITALS: BP_SYST 139
[2017-12-26] MEDS: ALBUTEROL SULFATE 0.083% 2.5 MG/3 ML VIAL.NEB INH SCH ×6 (02:27→23:00)
[2017-12-26] MEDS: IPRATROPIUM BROM 0.5 MG/2.5 ML VIAL.NEB (ATROVENT) INH SCH ×6 (02:27→23:45)
--- NOTE | 2017-12-26 03:00 | NUR ---
ROUNDS PATIENT RESTING IN BED. NO DISTRESS NOTED. IVF CONTINUOUSLY INFUSING ORDERED. CALL LIGHT WITHIN REACH.
[2017-12-26] MEDS: ALPRAZolam 0.25 MG TABLET PO PRN ×3 (06:02→21:36)
[2017-12-26] MEDS: SUCRALFATE 1 GM TABLET PO SCH ×2 (06:05→18:18)
[2017-12-26] MEDS: POTASSIUM CHLORIDE 10 MEQ in 0.45% NACL 1,000 ML IV SCH (06:06)
--- NOTE | 2017-12-26 06:13 | NUR ---
ANXIETY PATIENT MEDICATED WITH XANAX FOR EPISODE OF ANXIETY. AM SUGAR 140. NO COVERAGE NEEDED.
[2017-12-26] MEDS: MILK OF MAGNESIA 30 ML UDC PO PRN (06:35)
--- NOTE | 2017-12-26 06:35 | NUR ---
CONSTIPATION MOM GIVEN ORDERED FOR C/O CONSTIPATION
[2017-12-26] MEDS: BUDESONIDE 0.5 MG/2 ML AMPUL.NEB INH SCH ×2 (06:57→19:35)
--- NOTE | 2017-12-26 07:55 | NUR ---
NOTES RECEIVED PATIENT FROM TARIFF SUPERVISOR. PATIENT AWAKE RETURNING FROM BATHROOM. ALERT, ORIENTED. ROOM AIR. NO ACUTE DISTRESS. NO SOB. RESPIRATION EVEN AND UNLABORED. DENIES ANY N/V OR ABDOMINAL PAIN. SKIN WARM AND DRY TO TOUCH. IV INTACT AND PATENT. RACHELLE IV FLUIDS ORDERED. BED IN LOW AND LOCKED POSITION. SIDERAIL UP X2. BED ALARM ON. ALL NEEDS MET. CALL LIGHT IN REACH. CONT TO MONITOR.
[2017-12-26 08:00] VITALS: BP_SYST 132
[2017-12-26 09:14] LABS: WEST NILE VIRUS, IgG, SERUM Negative (Negative)
[2017-12-26] MEDS: TOPIRAMATE 25 MG TABLET(TOPAMAX) PO SCH (09:20)
[2017-12-26] MEDS: methylPREDNISolone SOD SUCC 40 MG/ML VIAL IVP SCH ×2 (09:20→21:30)
[2017-12-26] MEDS: guaiFENesin ER 600 MG TAB PO SCH ×2 (09:20→21:37)
[2017-12-26] MEDS: PANTOPRAZOLE SODIUM 40 MG TAB PO SCH (09:20)
[2017-12-26] MEDS: BIOTIN 1000 MCG PO SCH (09:20)
--- NOTE | 2017-12-26 09:27 | NUR ---
SEEN AND EXAMINED BY AT BEDSIDE. ALL DUE MEDS ADMINISTERED AND RACHELLE WELL. ALL NEEDS MET. CONT TO MONITOR. CALL LIGHT IN REACH. MOTHER AT BEDSIDE.
[2017-12-26] MEDS: IPRATROPIUM BROM 0.5 MG/2.5 ML VIAL.NEB (ATROVENT) INH PRN ×2 (09:34→13:50)
[2017-12-26] MEDS: LevALBUTEROL HCL 1.25 MG/0.5 ML *CONC.* VIAL.NEB (XOPENEX CONC.) INH PRN ×2 (09:34→13:51)
--- NOTE | 2017-12-26 09:35 | NUR ---
CONSULT CARDIOLOGY TACHYCARDIA DR TILLMAN [phone] S/W ANDRE OFFICE
--- NOTE | 2017-12-26 10:50 | NUR ---
SEEN AND EXAMINED BY AT BEDSIDE. ALL NEEDS MET. CONT TO MONITOR. CALL LIGHT IN REACH.
[2017-12-26 10:54] LABS: FREE T4 (FREE THYROXINE) 0.6 ng/dL (0.6-1.6); THYROID STIMULATING HORMONE 0.51 uIu/mL (0.34-4.82)
[2017-12-26 11:27] VITALS: BP_SYST 124
[2017-12-26 11:33] LABS: CALCIUM 9.5 mg/dL (8.4-11.0); CREATININE 0.67 mg/dL (0.55-1.30); POTASSIUM 3.1 mmol/L (3.5-5.1)
--- NOTE | 2017-12-26 11:40 | NUR ---
BLOOD GLUCOSE PATIENT BLOOD SUGAR IS 131 mg/dL AT THIS TIME WITH NO INSULIN COVERAGE NOTED. NO S/SX HYPO/HYPERGLYCEMIA NOTED. DIABETIC TEACHING DONE. CONT TO MONITOR. CALL LIGHT IN REACH
[2017-12-26] MEDS ORDERED: DOCUSATE SODIUM 100 MG CAPSULE PO ONE (11:45)
--- NOTE | 2017-12-26 12:20 | NUR ---
XANAX PATIENT WITH ANXIETY. ATTEMPTED TO CALM PATIENT DOWN; INEFFECTIVE. XANAX ADMINISTERED ORDERED. ALL NEEDS MET. CALL LIGHT IN REACH. CONT TO MONITOR. MOTHER AT BEDSIDE.
--- NOTE | 2017-12-26 14:00 | NUR ---
BM ASSISTED PATIENT TO BATHROOM. PATIENT HAD X1 EPISODE OF BM LRG FORMED. ALL NEEDS MET. CONT TO MONITOR. CALL LIGHT IN REACH .
--- NOTE | 2017-12-26 15:18 | NUR ---
Dietitian Recommendations * [facility], mechanical soft diet per MD * Adhere to pt food preferences LP, RD Please refer to Nutrition Assessment for details.
[2017-12-26 15:22] VITALS: BP_SYST 128
--- NOTE | 2017-12-26 16:00 | NUR ---
NOTES PATIENT SITTING UP IN RECLINING CHAIR TALKING TO GRANDFATHER. VITAL SIGN STABLE. ALL NEEDS MET. CALL LIGHT IN REACH. CONT TO MONITOR.
--- NOTE | 2017-12-26 17:50 | NUR ---
BLOOD GLUCOSE PATIENT BLOOD GLUCOSE IS 76 mg/dL WITH NO INSULIN COVERAGE ADMINISTERED ORDERED. DINNER TRAY SET UP AND EXTRA PUDDING REQUESTED BY PATIENT; ALL NEEDS MET. CALL LIGHT IN REACH. CONT TO MONITOR. GIRLFRIEND AT BEDSIDE
[2017-12-26] MEDS: MORPHINE 2 MG/ML INJ. SYRINGE IVP PRN ×2 (18:18→23:42)
--- NOTE | 2017-12-26 18:45 | NUR ---
CLOSING NOTE PATIENT SITTING UP IN BED. DENIES PAIN. NO ACUTE DISTRESS. NO SOB. RESPIRATION EVEN AND UNLABORED. SKIN WARM AND DRY TO TOUCH. IV INTACT AND PATENT. RACHELLE IV FLUID. BED IN LOW AND LOCKED POSITION. SIDERAIL UPX2. PATIENT REFUSED BED ALARM. ALL NEEDS MET. CALL LIGHT IN REACH. WILL ENDORSE TO ONCOMING SHIFT. GIRLFRIEND AT BEDSIDE
--- NOTE | 2017-12-26 19:45 | NUR ---
OPENING NOTE Received patient AOx4, awake and resting in bed. She had family at bedside. She was sinus tachycardia on the heart monitor. The board was updated and reviewed plan of care. Her last pain medication given on prior shift and will continue to monitor for effect of medication. Bed is to lowest position and call light within reach.
--- NOTE | 2017-12-26 19:58 | NUR ---
Paged Dr. Almeida, Dr. Valdez is immigration coordinator dialed [phone], s/w Darlene.
--- NOTE | 2017-12-26 20:00 | NUR ---
s/w George Spoke with Dr. Alejo regarding the effects of the breathing treatments; the patient's heart rate increases. Presently the breathing treatments are every four hours and the respiratory therapist asked if the breathing treatments could be every six hours. Dr. Alejo said to keep the breathing treatments as ordered and also stated that if lung sounds are clear the breathing treatments can be every six hours. The patient's lung sounds have wheezing to left ant lobes and the order was kept as originally ordered.
[2017-12-26 20:15] VITALS: BP_SYST 149
[2017-12-26] MEDS: DOCUSATE SODIUM 100 MG CAPSULE PO SCH (21:37)
--- NOTE | 2017-12-26 21:50 | NUR ---
ANXIETY Pt very anxious and crying, states she cannot breath, family at bedside. BP 149/117 HR 149 O2 98% on room air. Pt encouraged to take slow deep breaths, R. upper lung clear, left wheezing. Xanax PO given. Rechecked vitals at 2200 BP 134/96 HR 121 100% on room air. Will continue to monitor.
--- NOTE | 2017-12-26 23:30 | NUR ---
PAIN MEDICATION The patient reported chest pain 09/19 and morphine was administered as ordered. She also requested and received breathing treatments. Will continue to monitor.
[2017-12-27] VITALS (7 sets, daily range): BP systolic 106–139
--- NOTE | 2017-12-27 00:15 | NUR ---
ROUNDS Patient is resting, and reports pain decreased to 4/10. Needs met. Bed is to lowest position, side rails up and call light within reach. Will continue to monitor.
--- NOTE | 2017-12-27 02:30 | NUR ---
Rounds Pt asleep, easily arousable. No s/s distress or discomfort noted. Pt states pain is ok at this time. No s/s anxiety noted. HR 70's. IV fluid bag replaced. Safety measures maintained. Call light within reach. To monitor.
[2017-12-27] MEDS: POTASSIUM CHLORIDE 10 MEQ in 0.45% NACL 1,000 ML IV SCH ×2 (02:39→16:10)
[2017-12-27] MEDS: ALBUTEROL SULFATE 0.083% 2.5 MG/3 ML VIAL.NEB INH SCH ×5 (03:00→19:25)
[2017-12-27] MEDS: IPRATROPIUM BROM 0.5 MG/2.5 ML VIAL.NEB (ATROVENT) INH SCH ×6 (03:00→22:57)
[2017-12-27] MEDS: SUCRALFATE 1 GM TABLET PO SCH ×2 (06:38→16:14)
--- NOTE | 2017-12-27 06:48 | NUR ---
CLOSING NOTE Patient asleep resting and calm. She reports feels better, she feels some congestion, but not the sharp pain she felt earlier. Pain is down to a four. Scheduled medication administered. Morning accucheck was 106. Bed is low and call light w/in reach. Will endorse care to morning nurse.
[2017-12-27] MEDS: LevALBUTEROL HCL 1.25 MG/0.5 ML *CONC.* VIAL.NEB (XOPENEX CONC.) INH PRN ×5 (07:17→22:56)
[2017-12-27] MEDS: BUDESONIDE 0.5 MG/2 ML AMPUL.NEB INH SCH ×2 (07:17→19:38)
--- NOTE | 2017-12-27 07:25 | NUR ---
Opening Note: Patient laying in bed resting. Patient denies pain and discomfort. Breathing is even and unlabored with no distress noted. IV patent and intact running IV fluids per MD order. Safety precautions in place; bed in lowest position, wheels locked, side rails x3, bed alarm activated and call light within reach. No needs at this time. Will continue to monitor.
[2017-12-27] MEDS: PANTOPRAZOLE SODIUM 40 MG TAB PO SCH (08:40)
[2017-12-27] MEDS: DOCUSATE SODIUM 100 MG CAPSULE PO SCH ×2 (08:41→21:32)
[2017-12-27] MEDS: BIOTIN 1000 MCG PO SCH (08:41)
[2017-12-27] MEDS: guaiFENesin ER 600 MG TAB PO SCH (08:41)
[2017-12-27] MEDS: methylPREDNISolone SOD SUCC 40 MG/ML VIAL IVP SCH ×2 (08:41→21:30)
[2017-12-27] MEDS: TOPIRAMATE 25 MG TABLET(TOPAMAX) PO SCH (08:42)
[2017-12-27] MEDS: ALPRAZolam 0.25 MG TABLET PO PRN ×2 (09:47→19:40)
[2017-12-27] MEDS ORDERED: KETOROLAC TROMETHAMINE 15 MG VIAL IVP ONE (10:15)
[2017-12-27] MEDS ORDERED: POTASSIUM CHLORIDE 40 MEQ, LIDOCAINE JECT 2% PF 100 MG 50 MG in NS 250 ML IV ONE (10:15)
[2017-12-27] MEDS: ONDANSETRON HCL 4 MG/2 ML VIAL IVP PRN (11:12)
--- NOTE | 2017-12-27 11:54 | NUR ---
Rounds: Patient laying in bed resting, mother at bedside. Patient denies pain and discomfort. Breathing is even and unlabored with no distress noted. IV fluids running per MD order, no signs of infiltration. Morning medications tolerated well. Safety precautions in place. No needs at this time. Will continue to monitor.
[2017-12-27] MEDS ORDERED: KETOROLAC TROMETHAMINE 15 MG VIAL IVP SCH (15:00)
--- NOTE | 2017-12-27 16:15 | NUR ---
Rounds: Patient laying in bed resting, family and friends at bedside. Patient denies pain and discomfort. No distress noted. IVF running with no signs of infiltration. Safety precautions in place. No needs at this time. Will continue to monitor.
[2017-12-27] MEDS: INSULIN REGULAR, HUMAN 100 UNITS/ML, 10 ML VIAL (novoLIN R) SUBCUT PRN (17:06)
--- NOTE | 2017-12-27 17:10 | NUR ---
Accucheck: Blood sugar 153, covered with 2 units Novolin R per sliding scale.
--- NOTE | 2017-12-27 17:44 | NUR ---
IV RE-INSERTION: IV site due to be changed. Restarted on right forearm. Successful after 1 attempts. Resumed current IVF of 1/2 NS + 10 meq of potassium and regulated @ 70 per hour. Will observe for any signs of infiltration.
[2017-12-27] MEDS: METOCLOPRAMIDE HCL 10 MG TABLET PO PRN (18:25)
--- NOTE | 2017-12-27 19:15 | NUR ---
change of shift.pt.presents anxiety status,pain.i have been apprised of the change in pain mgx medication per : toradol;d/c.i am to review the [facility] med-list.general status anxious.
--- NOTE | 2017-12-27 19:27 | NUR ---
Closing Note: Patient laying in bed resting. Patient denies pain and discomfort. Breathing is even and unlabored with no distress noted. IV patent and intact running IV fluids per MD order. Safety precautions in place; bed in lowest position, wheels locked, side rails x3, bed alarm activated and call light within reach. All needs met. Report given to Mitch at bedside using SBAR.
[2017-12-27] MEDS: MORPHINE 2 MG/ML INJ. SYRINGE IVP PRN ×2 (19:35→23:34)
--- NOTE | 2017-12-27 19:40 | NUR ---
i [facility].toradol;15mg ivp q-8hrs d/c.i have apprised the pt.and have administered morphine;2mg ivp.i have administered xanax;0.25m po.pt.presents anxious status.i was apprised that the pt's heart rate presents bpm;120's.pt.is receiving hhn treatment per r/t.and i have accounted for the anxious status. i have apprised the pt.that will review the order:d/c toradol per .and f/u.
--- NOTE | 2017-12-27 20:10 | NUR ---
pt.assessed.v/s assessed:values w/in normal limits.o2 sat%=100%@2l./min via nasal cannulae.i have assessed the efficacy morphine pt.has stated pain decrease somewhat but chest is tight; had assessed the pt.@1830p. noted the cardio studies are negative.i have apprised the pt.that snacks are available w/in the shift. i inquired if the xanax efficacy pt.stated the xanax is relieving the anxiety.i have apprised the pt.that i am in the prosses of reviewing the pt's orders.pt.understood.call light/telephone w/in the pt's reach.
--- NOTE | 2017-12-27 20:45 | NUR ---
i have assessed the blood glucose;93mg/dl.i have inquired if the opt.requests snack items.pt has stated pudding: the snack is a preventive measure re;hypoglycemia.status w/in the night.i have provided the snacks x2.
--- NOTE | 2017-12-27 21:00 | NUR ---
2100pedications administered.pt's mother is present.the pt's mother inquired if the toradol can be re-ordered.the pt's mother was concerned that the maintenance foreman d/c the toradol.i have reviewed the pt's orders: had ordered the toradol:15mg ivp q-8hrs.the pt.received the initial dose d/c the toradol w/in the day shift;not .i apprised the pt.and mother that the maintenance foreman did not d/c the toradol but .the ld teacher:who had ordered the medication. to be paged.pt.has stated she is constipated;colace ordered:[id number] and mom 30ml po prn. the pt.refused mom@this hour.no additional requests@this hour.
--- NOTE | 2017-12-27 21:13 | NUR ---
paged paged for Dr Almeida, dialed . Dr Merlos s/w Brandi.
--- NOTE | 2017-12-27 21:15 | NUR ---
returned the paged;medical information officer.i apprised of the pt's requests. stated he did not know the pt.and is not familiar w/the pt's caes. refuse to re-order the toradol per .i have apprised the t;& mother of the decision of .i have apprised the pt,.a& mother that ;attending md to be paged re;the issue.
--- NOTE | 2017-12-27 21:26 | NUR ---
paged paged for Dr Matos, dialed . s/w Jewell.
--- NOTE | 2017-12-27 21:30 | NUR ---
paged: returned the page.i have apprised of the pt;s requests; stated she would not re-order the toradol;that had ordered the medication initially and would not circumvent 's order.i apprised the pt.& mother.pt.acquiesced and accepted to receive the morphine until the am to confer to re:re-order of the toradol.
--- NOTE | 2017-12-27 22:15 | NUR ---
pt.assessed.pt.presents quiescent affect;calm.pt.has requested consume;roseann;fish hatchery laborer has assisted the pt.provide the consume. pt.presents quiescent affect;calm.mother/father have left the room.iv fluids infusing.general status stable.respiratory status stable.call light/telephone w/in the pt's reach.
[2017-12-28] VITALS: BP_SYST 135
--- NOTE | 2017-12-28 | NUR ---
pt.assessed.v/s assessed;values w/in normal limits.i have inquired of the pt's status.she stated she is ok.pain present but tolerating. no additional requests@this hour.general status stable.respiratory status stable.call light/telephone w/in the pt's reach.
[2017-12-28] MEDS: MORPHINE 2 MG/ML INJ. SYRINGE IVP PRN ×2 (03:31→11:24)
[2017-12-28] MEDS: ALPRAZolam 0.25 MG TABLET PO PRN ×3 (03:34→21:58)
--- NOTE | 2017-12-28 03:38 | NUR ---
pt.requested medication:pain,anxiety.i have administered morphine;2mf ivp.pain.i have administered xanax;0.25mg po. no additional requests@this hour.general status stable.respiratory status stable.call light/telephone w/in the pt's reach.
--- NOTE | 2017-12-28 04:17 | NUR ---
pt.assessed.pt.presents quiescent affect;i have changed the batteries;cardio-monitor.pt.presents no requests@ this hour.pt.has returned to sleep,.general status stable.respiratory status stable.call light/telephone w/in the pt's reach.
[2017-12-28] MEDS: POTASSIUM CHLORIDE 10 MEQ in 0.45% NACL 1,000 ML IV SCH (06:07)
[2017-12-28] MEDS: SUCRALFATE 1 GM TABLET PO SCH ×2 (06:08→17:28)
[2017-12-28] MEDS: MILK OF MAGNESIA 30 ML UDC PO PRN (06:09)
--- NOTE | 2017-12-28 06:15 | NUR ---
pt.assessed.blood glucose assessed;value:112mg/dl.i have changed the iv fluids.i have administered carafate;scheduled. mom:30ml po prn;constipation.general status stable.respiratory status stable.call light/telephone w/in the pt's reach.
[2017-12-28] MEDS: IPRATROPIUM BROM 0.5 MG/2.5 ML VIAL.NEB (ATROVENT) INH SCH ×2 (07:00→22:27)
[2017-12-28] MEDS: ALBUTEROL SULFATE 0.083% 2.5 MG/3 ML VIAL.NEB INH SCH (07:00)
[2017-12-28 07:06] LABS: CALCIUM 9.4 mg/dL (8.4-11.0); CREATININE 0.58 mg/dL (0.55-1.30); POTASSIUM 4.4 mmol/L (3.5-5.1)
[2017-12-28] MEDS: BUDESONIDE 0.5 MG/2 ML AMPUL.NEB INH SCH ×2 (07:26→22:27)
[2017-12-28] MEDS: LevALBUTEROL HCL 1.25 MG/0.5 ML *CONC.* VIAL.NEB (XOPENEX CONC.) INH PRN ×2 (07:26→22:28)
[2017-12-28 08:13] VITALS: BP_SYST 126
[2017-12-28] MEDS: TOPIRAMATE 25 MG TABLET(TOPAMAX) PO SCH (08:59)
[2017-12-28] MEDS: PANTOPRAZOLE SODIUM 40 MG TAB PO SCH (08:59)
[2017-12-28] MEDS: BIOTIN 1000 MCG PO SCH (08:59)
[2017-12-28] MEDS: DOCUSATE SODIUM 100 MG CAPSULE PO SCH ×2 (08:59→21:58)
[2017-12-28] MEDS: methylPREDNISolone SOD SUCC 40 MG/ML VIAL IVP SCH (08:59)
--- NOTE | 2017-12-28 11:44 | NUR ---
SIRIAP. MET WITH PT AND MOTHER AT BEDSIDE. DISCUSSED THE FF; WILL ORDER NEBULIZER FOR HOME USE [id number] home nebulizer - [facility] [phone] WILL MAKE ARRANGEMENT FOR HOME HEALTH - [facility] Care FF UP WITH ALVIN GARCÍA AT [facility] - 1:30 PM REG JOHNSON RN/CM T [phone]
[2017-12-28 12:40] VITALS: BP_SYST 124
--- NOTE | 2017-12-28 13:25 | NUR ---
Anxiety: Patient feeling anxious, worried about discharge stating "I don't know what I'm going to do, my chest keeps flaring up". PRN Xanax given, see emar. Will reassess.
--- NOTE | 2017-12-28 15:00 | NUR ---
Paging Dr. Schultz: Paging Dr. Schultz to inform him of discharge being held from Dr. Almeida. Awaiting callback.
--- NOTE | 2017-12-28 15:15 | NUR ---
Dr. Schultz at bedside: Dr. Schultz at bedside. Aware of discharge being held. Orders received.
[2017-12-28] MEDS ORDERED: ACETAMINOPHEN 325 MG TABLET PO PRN (15:30)
[2017-12-28] MEDS: IBUPROFEN 600 MG TABLET PO PRN ×2 (15:45→21:58)
--- NOTE | 2017-12-28 15:57 | NUR ---
CONSULTATION PAGED/CALLED Reason for Consultation: [] BIPOLAR Person Who was Notified: [] FLYNN Consulting Physician: [] DR Damari BROWN Manager [employer]olog[employer] Specialty: [] PSYCH Ordering Physician: [] DR Priti TANNER
--- NOTE | 2017-12-28 16:13 | NUR ---
Rounds: Patient laying in bed resting, family and friends at bedside. No distress noted. Safety precautions in place. No needs at this time. Will continue to monitor.
[2017-12-28 16:50] VITALS: BP_SYST 127
[2017-12-28] MEDS: PREDNISONE 20 MG TABLET PO SCH (17:28)
--- NOTE | 2017-12-28 19:00 | NUR ---
Closing Note: Patient laying in bed resting. Patient denies pain and discomfort. Breathing is even and unlabored with no distress noted. IV patent and intact. Safety precautions in place; bed in lowest position, wheels locked, side rails x3, bed alarm activated and call light within reach. All needs met. Will endorse plan of care to NOC, nurse.
--- NOTE | 2017-12-28 19:54 | NUR ---
Initial note: Received handoff report from dayshift RN at patient's bedside. Patient is awake, alert and oriented x4. Friend and fiancee are at bedside. Patient shows no signs or symptoms of acute distress. Respirations even and unlabored on room air. IV noted to patient's right forearm, site is patent and benign. Safety and fall precautions in place, call light is with patient. Will continue monitoring.
[2017-12-28 20:05] VITALS: BP_SYST 116
[2017-12-28] MEDS: INSULIN REGULAR, HUMAN 100 UNITS/ML, 10 ML VIAL (novoLIN R) SUBCUT PRN (22:10)
--- NOTE | 2017-12-28 22:10 | NUR ---
Blood sugar: Patient's blood sugar was 163. Administered 2 units regular insulin subcutaneously per sliding scale. Patient tolerated well. Education regarding medication indication and side effects provided, patient verbalized understanding. Patient requested chocolate pudding with no sugar added to avoid low blood sugar, pudding provided to patient. Will continue monitoring.
--- NOTE | 2017-12-29 00:21 | NUR ---
Rounds: Patient is resting in bed with eyes closed, no acute distress noted. Respirations even and unlabored while on room air. Safety and fall precautions remain in place. Will continue monitoring.
[2017-12-29 00:47] VITALS: BP_SYST 121
--- NOTE | 2017-12-29 02:17 | NUR ---
Rounds: Patient is in bed asleep. No signs or symptoms of acute distress noted. Patient's breathing even and unlabored, tolerating room air. Call light is with patient. Safety and fall precautions remain in place. Will continue to monitor.
--- NOTE | 2017-12-29 04:31 | NUR ---
Rounds: Patient resting in bed with eyes closed, no acute distress exhibited. Patient's breathing is even and unlabored on room air. Safety and fall precautions remain in place. Will continue monitoring.
--- NOTE | 2017-12-29 06:04 | NUR ---
CONSULTATION PAGED/CALLED Reason for Consultation: BIPOLAR Person Who was Notified: ARMIDA Consulting Physician: DR. GRANDA; EDUCATION DIAGNOSTICIAN- DR. MENSAH Store Host Specialty: PSYCH Ordering Physician: DR. TANNER
[2017-12-29] MEDS: SUCRALFATE 1 GM TABLET PO SCH (06:19)
--- NOTE | 2017-12-29 06:19 | NUR ---
Blood sugar: Patient's blood sugar is 83. No insulin coverage provided per sliding scale. Patient had not eaten pudding provided to her last night. Encouraged patient to eat the pudding to avoid risk of hypoglycemia. Patient verbalized understanding.
[2017-12-29] MEDS: IBUPROFEN 600 MG TABLET PO PRN (06:25)
[2017-12-29] MEDS: ALPRAZolam 0.25 MG TABLET PO PRN (06:25)
--- NOTE | 2017-12-29 06:41 | NUR ---
Closing note: Patient is awake, fiancee is at bedside. No acute distress noted. Patient recently medicated for pain and anxiety. All needs met and attended to. Will endorse care to dayshift RN.
[2017-12-29] MEDS: ALBUTEROL SULFATE 0.083% 2.5 MG/3 ML VIAL.NEB INH SCH ×2 (07:00→11:00)
[2017-12-29] MEDS: BUDESONIDE 0.5 MG/2 ML AMPUL.NEB INH SCH (07:59)
[2017-12-29] MEDS: IPRATROPIUM BROM 0.5 MG/2.5 ML VIAL.NEB (ATROVENT) INH SCH ×2 (07:59→11:12)
[2017-12-29 08:00] VITALS: BP_SYST 122
--- NOTE | 2017-12-29 08:00 | NUR ---
Opening Note Report received from [facility] shift nurse. Patient is currently eating breakfast in bed. IV is on the RFA 22g saline locked. No complaints of abdominal pain at the moment. Call light is within reach and bed is in low position. Will continue to monitor.
[2017-12-29] MEDS: LevALBUTEROL HCL 1.25 MG/0.5 ML *CONC.* VIAL.NEB (XOPENEX CONC.) INH PRN ×2 (08:01→11:12)
[2017-12-29] MEDS: PREDNISONE 20 MG TABLET PO SCH (09:44)
[2017-12-29] MEDS: TOPIRAMATE 25 MG TABLET(TOPAMAX) PO SCH (09:44)
[2017-12-29] MEDS: PANTOPRAZOLE SODIUM 40 MG TAB PO SCH (09:44)
[2017-12-29] MEDS: DOCUSATE SODIUM 100 MG CAPSULE PO SCH (09:44)
[2017-12-29] MEDS: BIOTIN 1000 MCG PO SCH (09:45)
--- NOTE | 2017-12-29 10:20 | NUR ---
Rounds Patient is resting in bed. No signs of distress noted.
[2017-12-29 11:17] VITALS: BP_SYST 122
[2017-12-29] MEDS ORDERED: METH2TAB PO (12:01)
[2017-12-29] MEDS ORDERED: ALBU2.5V7 INH (12:02)
[2017-12-29 12:15] VITALS: BP_SYST 136
--- NOTE | 2017-12-29 12:30 | NUR ---
Transition of Care Note All transition of care instructions and prescriptions were provided to the patient and her mother. Both verbalized understanding of all. IV and ID band were both removed. Home nebulizer machine was delivered to the patient prior to discharge. Patient left the unit in stable condition with all belongings.
--- NOTE | 2017-12-29 15:39 | NUR ---
Discharge Planning: Late entry for 12/28/2017; DCP faxed pt orders to [facility] (f [phone] ).
== END 2017-12-29 12:30 | disposition home or self-care (01) | DRG 202 ==
LOC: SED 17:58 → SMU 21:29 → STU 12-26 20:41
PROVIDERS: ADMIT Internal Medicine; ATTEND Internal Medicine Hospice and Palliative Medicine
DX: J20.9 Acute bronchitis, unspecified (principal); J45.901 Unspecified asthma with (acute) exacerbation; E87.2 Acidosis; M94.0 Chondrocostal junction syndrome [Tietze]; R07.89 Other chest pain; E11.9 Type 2 diabetes mellitus without complications; F31.9 Bipolar disorder, unspecified; E86.0 Dehydration; F12.988 Cannabis use, unspecified with other cannabis-induced disorder; R11.10 Vomiting, unspecified; E87.6 Hypokalemia; F41.9 Anxiety disorder, unspecified; I07.1 Rheumatic tricuspid insufficiency; K59.00 Constipation, unspecified; F17.200 Nicotine dependence, unspecified, uncomplicated; Z88.1 Allergy status to other antibiotic agents; Z79.899 Other long term (current) drug therapy; Z88.0 Allergy status to penicillin; Z83.3 Family history of diabetes mellitus
CPT/HCPCS: 36415; 36600; 71045; 71275; 76700-TC; 76705; 80048; 80053; 82009-TC; 82785; 82803-TC; 82962; 83690-TC; 83735-TC; 84439; 84443-TC; 84484; 84703; 85007; 85025; 85027; 86788; 86789; 93005; 93306; 94640; 94760; 96365; 96375; 99285; C9113; J0456; J1030; J1815; J1885; J2270; J2405; J2765; J2930; J3480; J7030; J7050; J7512; J7612; J7613; J7626; J8597; Q9964; Q9967